=== PATIENT | female | born 1930 | race American Indian/Alaskan Native ===

== ENCOUNTER 2017-02-24 15:23 | Outpatient (CLI) | payer MEDICARE | END 2017-02-24 15:24 | disposition home or self-care (01) | LOC: LABHHL 15:23 | PROVIDERS: ATTEND Surgery | DX: N63 Unspecified lump in breast (principal) | CPT/HCPCS: 88305; 88361 ==

== ENCOUNTER 2017-02-28 14:40 | Outpatient (CLI) | payer MEDICARE | END 2017-02-28 14:41 | disposition home or self-care (01) | LOC: LABHHL 14:40 | PROVIDERS: ATTEND Surgery | DX: D48.7 Neoplasm of uncertain behavior of other specified sites (principal) | CPT/HCPCS: 88305 ==

== ENCOUNTER 2017-04-16 09:20 | Inpatient (IN) | payer MEDICARE ==
--- NOTE | 2017-04-03 15:27 | Admit Criteria Form ---
Admission Criteria Documentation: AMBULATORY SURGERY EXCEPTION CRITERIA Ambulatory Surgery Exception Criteria ( Place 'X' for any and all applicable criteria): Surgery or procedure performed on ambulatory basis may require inpatient stay for[A] ANY ONE of the following(1)(2)(3)(4)(5)(6)(7)(8)(9): [X] I. A preoperative situation, condition, or finding that warrants inpatient stay as indicated by ANY ONE of the following: [] a) Inpatient care needed because of severity of a disease or condition rather than the surgery (eg, severe cardiac or respiratory disease, severe infection) (15) (16 ) (17) (18) [] b) Emergent procedure (eg, angioplasty for acute ischemia)(19) [] c) Complex surgical approach or situation as indicated by ANY ONE of the following(3): [] i) Open approach needed instead of usual endoscopic, transcatheter, or other less invasive procedure [] ii) Difficult approach because of previous operation [] iii) Airway monitoring required after open neck procedures(20)(21) [] iv) Large mass requiring unusually extensive dissection [] v) Additional complicating feature requiring inpatient care (eg, drain management)(22(23): [X] d) Major surgery in a pt with high anesthetic risk as indicated by ANY ONE of the following (2)(3)(5)(7)(8): [X] i) ASA risk class III or higher (severe systemic disease impairing function) [D] [] ii) Advanced age (eg, older than 85 years)(14)(24) [] iii) Symptomatic heart failure(25) [] iv) Symptomatic asthma or COPD(8)(21) [] v) Morbid obesity with hemodynamic or respiratory problems(20)( 21)(26)(27) [] vi) Obstructive sleep apnea(20)(21) [] vii) Former premature infants who are younger than 60 weeks [] viii) High risk for severe postoperative abnormalities (eg, severe postoperative hypocalcemia after parathyroidectomy for severe hyperparathyroidism)(27)( 28) [] ix) Unstable angina(25) [] e) Drug-related risk requiring inpatient stay as indicated by ANY ONE of the following(5)(10)(14)(32)(33) [] i) Procedure requires discontinuing drugs or other therapy (eg , antiarrhythmic medication, antiseizure medication), which necessitates inpatient observation or treatment.(18)(31) [] ii) Major surgery and high risk drug use as indicated by ANY ONE of the following: [] 1) Active abuse of cocaine or similar drug [] 2) Monoamine oxidase inhibitor use [] 3) Other drug identified as posing risk [] f) Inadequate outpatient care situation as indicated by ANY ONE of the following(5)(10)(14)(32)(33) [] i) Patient lives remote from medical facility and procedure has urgent complication potential, and temporary nearby residence cannot be arranged [] ii) Patient will have postprocedure incapacitation and inadequate assistance at home, or alternative level of care cannot be arranged. [] iii) Patient will have long general anesthesia or procedure side effect resolution time, and competent person to stay with patient on first postoperative night at home or alternative level of care cannot be arranged. []iv) Other inadequate outpatient situation that cannot be handled by other means [] II. A perioperative event, condition, or finding that warrants inpatient stay as indicated by ANY ONE of the following (1)(2)(3): [] a) Inadequate physiologic recovery: cardiovascular, respiratory, or hemodynamic status not normal or near preoperative baseline(18) [] b) Hemodynamic instability [] c) Patient not alert with near normal or baseline mental status [] d) Temperature not normal or as expected and not appropriate for outpatient treatment of condition [] e) Ambulatory or appropriate activity level status not yet achieved post procedure [E](34)(35)(36) [] f) Operative site not appropriate (eg, unexpected or excessive drainage or bleeding) [] g) Postoperative effects not resolved or adequately managed (eg, significant pain or vomiting not appropriate for outpatient or next level of care)(10)(12) [] h) Complicating features requiring inpatient care as indicated by ANY ONE of the following(37): [] i) Severe complications of procedure (eg, bowel injury, airway compromise, vascular injury,severe hemorrhage) [] ii) Extensive (eg, dissection far beyond usual scope of procedure ) or prolonged (eg, 120 minutes beyond usual) surgery needed requiring inpatient postoperative care [] iii) Conversion to an open or complex procedure that requires inpatient care (eg, open vs laparoscopic cholecystectomy, abdominal vs vaginal hysterectomy)(38) [] iv) Comorbid condition or test result identified during or post procedure that requires inpatient care (7) [] v) Malignant hyperthermia(30) [] vi) Other complicating feature requiring inpatient care(22)(23) Inpatient stay may be needed until ALL of the following are present (1)(2)(3)(4) (5)(6)(10)(14)(33)(40): []a) Physiologic recovery: cardiovascular, respiratory, and hemodynamic status normal or near preoperative baseline []b) Hemodynamic stability []c) Patient alert, with near normal or baseline mental status []d) Temperature appropriate: patient afebrile or temperature appropriate for outpt treatment of condition []e) Activity level appropriate: ambulatory or appropriate activity level post procedure []f) Operative site appropriate as indicated by ALL of the following: []i) Site dry or with expected drainage []ii) Any blood noted is as expected for procedure. []g) Postoperative effects resolved or managed as indicated by ALL of the following: []i) Pain management appropriate for outpatient (or next level of) care(10) []ii) Minimal nausea and vomiting: if present, successfully treated with oral medication(12) []iii) Headache, dizziness, or drowsiness (if present) are mild. []h) Voiding status acceptable as indicated by ANY ONE of the following: []i) Voiding spontaneously []ii) No voiding but instructions given for follow-up in 6 to 8 hours []iii) Urinary catheter in place, and instructions given for follow-up []i) Complicating features requiring inpatient care manageable at a lower level of care(37) []j) Comorbid conditions manageable at a lower level of care(37) The original [email or web address] content created by [email or web address] has been revised. The portions of the content which have been revised are identified through the use of italic text or in bold, and [facility] [employer] has neither reviewed nor approved the modified material. All other unmodified content is copyright [email or web address]. Please see references footnoted in the original [email or web address] edition 2016 Admission Criteria Met: Yes
[~2017-04-16 09:20] MED LIST: DILAUDID ONE; DIPRIVAN 10 MG/ML IV ONE
[2017-04-16] MEDS ORDERED: NEURONTIN ONE (09:48)
[2017-04-16] MEDS ORDERED: MARCAINE-EPI/PF 0.5%-1:200,000 INFILTRATI ONE (09:48)
[2017-04-16] MEDS ORDERED: DECADRON ONE ×2 (09:48→10:55)
[2017-04-16] MEDS ORDERED: LACTATED RINGERS 1,000 ML ONE ×2 (09:49→12:40)
[2017-04-16] MEDS ORDERED: PEPCID ONE (09:49)
[2017-04-16] MEDS ORDERED: VERSED ONE (09:49)
[2017-04-16] MEDS ORDERED: LACTATED RINGERS 1,000 ML IV SCH (10:00)
[2017-04-16] MEDS ORDERED: PEPCID PO NR (10:00)
[2017-04-16] MEDS ORDERED: VERSED IV SCH (10:00)
[2017-04-16] MEDS ORDERED: NEURONTIN PO NR (10:00)
--- NOTE | 2017-04-16 10:02 | Anesthesia Day of Surgery ---
Anesthesia Day of Surgery - Day of Surgery Patient Examined: Yes Patient H&P Reviewed: Yes Patient is NPO: Yes Beta Blockers: Yes Cardiac Clearance: Yes
--- NOTE | 2017-04-16 10:06 | Anesthesia Consultation ---
Anesthesia Consult and Med Hx - Airway Anesthetic Teeth Evaluation: Dentures (upper and lower) ROM Head & Neck: Adequate Mental/Hyoid Distance: Adequate Mallampati Class: Class II Intubation Access Assessment: Probably Good - Pulmonary Exam CTA: Yes - Cardiac Exam Cardiac Exam: No Murmur (irregular, pt in A Fib) - Pre-Operative Health Status ASA Pre-Surgery Classification: ASA3 Proposed Anesthetic Plan: General Nerve Block: PEC 2 Block - Pulmonary Hx Asthma: Yes (as child) - Cardiovascular System Hx Hypertension: Yes Hx Cardia Arrhythmia: Yes (A FIB) - Central Nervous System Hx Neuromuscular Disorder: Yes (arthritis) - Other Systems Hx Cancer: Yes (R breast ) - Additional Comments Anesthesia Medical History Comments: NPO after MN. Pt took her Beta Rufino this AM. Hx of A fib for many years. Last dose of coumadin 04/10/17. Cardiac clearance on chart. EF 55%. No prior anesthesia complications. Consented for PEC 2 block
[2017-04-16] MEDS ORDERED: XYLOCAINE MPF 2% ONE (10:12)
[2017-04-16] MEDS ORDERED: VANCOMYCIN/NS 1 GM/250 ML 1 GM/250 ML BAG IV ONE (10:22)
[2017-04-16] MEDS ORDERED: VANCOMYCIN/NS 1 GM/250 ML 1 GM/250 ML BAG IV NR (10:30)
[2017-04-16] MEDS ORDERED: ZOFRAN ONE (10:55)
[2017-04-16] MEDS ORDERED: ZOFRAN IV PRN (11:00)
[2017-04-16] MEDS ORDERED: BENADRYL PO PRN (11:00)
[2017-04-16] MEDS ORDERED: REGLAN PO PRN (11:00)
[2017-04-16] MEDS ORDERED: MORPHINE IV PRN (11:00)
[2017-04-16] MEDS ORDERED: TYLENOL PO PRN (11:00)
[2017-04-16] MEDS ORDERED: WATER FOR IRRIG STERILE IR ONE (11:19)
[2017-04-16] MEDS ORDERED: SODIUM CHLORIDE FLUSH SYRINGE 10 ML IV PRN (12:00)
[2017-04-16] MEDS ORDERED: ePHEDrine SULFATE ONE (12:04)
--- NOTE | 2017-04-16 13:37 | Short Stay Summary ---
Short Stay Documentation Date of service: 04/16/17 - History H&P: obtained from office - Allergies and Medications Current Medications: Allergies adhesive tape Adverse Reaction (Verified 04/04/17 13:24) Rash latex Adverse Reaction (Verified 04/04/17 13:24) Rash Penicillins Adverse Reaction (Verified 04/04/17 13:22) Rash Home Medications Medication Instructions Recorded Confirmed Last Taken Type Metoprolol Succinate [Metoprolol 100 mg PO DAILY 04/04/17 04/04/17 04/16/17 08: 10 History Succinate] Olmesartan/Hydrochlorothiazide 20 mg PO DAILY 04/04/17 04/04/17 04/16/17 08:10 History [Benicar HCT 20-12.5 mg] Vitamin B Complex 1 tab PO DAILY 04/04/17 04/16/17 04/15/17 History Warfarin Sodium [Warfarin Sodium] 5 mg PO DAILY 04/04/17 04/16/17 04/10/17 History HYDROcodone/APAP 5-325 [[place] 1 each PO Q6HR PRN #30 tablet 04/16/17 Unknown Rx 5/325] Active Medications Acetaminophen (Tylenol) 650 mg PO Q6H PRN PRN Reason: Pain MILD(1-3)/Fever >100.5/CARMONA Diphenhydramine HCl (Benadryl) 25 mg PO Q8H PRN PRN Reason: Itching Lactated Ringer's (Lactated Ringers) 1,000 mls @ 100 mls/hr IV DIRECT SURYA Lactated Ringer's (Lactated Ringers) 1,000 mls @ 125 mls/hr IV DIRECT SURYA Metoclopramide HCl (Reglan) 10 mg PO Q6H PRN PRN Reason: Nausea And Vomiting Midazolam HCl (Versed) 2 mg IV PREOP SURYA Last Admin: 04/16/17 10:11 Dose: 2 mg Morphine Sulfate (Morphine) 2 mg IV Q4H PRN PRN Reason: Pain, Moderate (4-6) Ondansetron HCl (Zofran) 4 mg IV Q8H PRN PRN Reason: N/V unrelieved by Reglan Oxycodone/Acetaminophen (Percocet 5/325) 1 tab PO Q6H PRN PRN Reason: Pain, Moderate (4-6) Sodium Chloride (Sodium Chloride Flush Syringe 10 Ml) 10 ml IV PRN PRN PRN Reason: LINE FLUSH - Brief post op/procedure progress note Date of procedure: 04/16/17 Pre-op diagnosis: Right breast cancer of the lower outer quadrant Post-op diagnosis: same Procedure: Right modified radical mastectomy Anesthesia: GETA Findings: Right modified radical mastectomy Surgeon: PRETTY ELLIOTT Estimated blood loss: minimal Pathology: list (R MRM) Specimen disposition: to lab Condition: stable - Disposition Condition at discharge: Good Disposition: DC-01 TO HOME OR SELFCARE Short Stay Discharge Plan Activity: other (no heavy lifting) Diet: regular Wound: other (keep incisions clean and dry; may shower in 24 hours; do not rub or scrub incision; no baths, pools or lakes) Follow up with: JOSE MACE MD [Primary Care Provider] - 7 Days PRETTY ELLIOTT MD [Staff Physician] - 7 Days Prescriptions: HYDROcodone/APAP 5-325 [[place] 5/325] 1 each PO Q6HR PRN #30 tablet PRN Reason: Pain
--- NOTE | 2017-04-16 13:51 | Operative Report ---
Operative Report Operative Report: Date of procedure: 04/16/2017 Pre-operative diagnosis: Right breast cancer of the lower outer quadrant Post-operative diagnosis: Same Procedure name(s): Right modified radical mastectomy Surgeon: Rachelle Naylor M.D. Fish Conservationist: Cooper Vargas Anesthesia: Gen. 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 Recommendations were to proceed with a right modified radical mastectomy given prior history of breast conservation followed by adjuvant radiation therapy and recent PET concerning for axillary metastasis. Patient wished to proceed with the above procedure. She did not want proceed with plastic reconstructive surgery. Procedure in detail: Anesthesia placed a right pectoral muscle block prior to proceeding to the operating room. The patient was taken to the operating room and was laid supine. Gen. anesthesia was administered. Right breast and axilla were prepped and draped in the normal sterile operative fashion. Timeout was performed. Right breast cancer at the 8 o'clock position was identified. Typical right mastectomy breasts markings were made. A skin incision was made with a 10 blade knife with dissection taken down to the subcutaneous tissues. First began with raising of the superior flap to the level of the clavicle and posterior to the pectoralis muscle followed by raising of the medial flap to the level of the sternum taken down posteriorly to the pectoralis muscle, followed raising of the inferior flap to the level of inframammary fold and taken down posterior to the pectoralis muscle and follow raising of the lateral flap to the level latissimus dorsi muscle and taken posteriorly. The breast was then removed from the pectoralis muscle without incident. The specimen was appropriately marked and sent to pathology. Attention was then taken towards the right axillary lymph node dissection. First began with identification of the axillary vein. Once the axillary vein was appropriately identified thoracodorsal bundle as well as long thoracic nerve were both identified. Axillary lymph node contents were dissected free from the above boundaries. Bulky axillary disease was noted. The lymph nodes were appropriately sent to pathology. Thoracodorsal bundle and long thoracic nerve were identified and were unharmed. Hemostasis was noted. Two 19 [place] drains were placed. Breast cavity and axilla were irrigated and suctioned. The subcutaneous tissues of the mastectomy flap were closed and brought together with interrupted 3-0 Vicryl and the skin was closed using a running 4- 0 Monocryl and skin affix. She tolerated surgery very well and was awakened from anesthesia without any complications and transported to PACU in good condition.
--- NOTE | 2017-04-16 14:24 | Post Anesthesia Evaluation ---
- Post Anesthesia Evaluation Patient Participated: Yes Airway Patent: Yes Stable Respiratory Function: Yes Nausea/Vomiting: No Temp > 96.8F: Yes Pain Manageable: Yes Adequeate Hydration: Yes Anesthesia Complications: No
[2017-04-16] MEDS: PERCOCET 5/325 PO PRN (17:25)
[2017-04-16] MEDS: LACTATED RINGERS 1,000 ML IV SCH (17:33)
[2017-04-17] MEDS: LACTATED RINGERS 1,000 ML IV SCH (00:41)
--- NOTE | 2017-04-17 07:38 | Progress Note ---
Assessment and Plan This is a 86 year old lady POD#1 R MRM for stage II right breast cancer. No acute events overnight. Pain well controlled. 1. Patient doing well. 2. Right chest incision healing well. 3. DELMIS drain education. 4. OOB to hallway. 5. D/C planning for this morning. 6. F/U with Dr. Naylor tomorrow morning. 7. Hold coumadin for now. Subjective Date of service: 04/17/17 Principal diagnosis: Right breast cancer of the lower oute quadrant Interval history: This is a 86 year old lady POD#1 R MRM for stage II right breast cancer. No acute events overnight. Pain well controlled. Objective - Constitutional Vitals: Vital Signs - 12hr 04/16/17 20:10 Temperature 96.8 F L Pulse Rate [ 52 L Apical] Respiratory 20 Rate Blood Pressure 137/71 [Left Arm] General appearance: Present: no acute distress - EENT Eyes: PERRL, EOM intact ENT: hearing intact, clear oral mucosa Ears: bilateral: normal - Neck Neck: supple, normal ROM - Respiratory Respiratory effort: normal Respiratory: bilateral: CTA - Breasts Breasts: other (right mastectomy incision c/d/i, skin well perfused, typical postoperative bruising, no fluid collection; DELMIS drains to bulb suction) - Cardiovascular Rhythm: regular Extremities: no ischemia, pulses intact, pulses symmetrical, No edema, normal temperature, normal color, Full ROM - Gastrointestinal General gastrointestinal: Present: soft, non-tender, non-distended Rectal Exam: deferred - Genitourinary Female genitourinary: deferred - Integumentary Integumentary: clear, warm, dry - Musculoskeletal Musculoskeletal: strength equal bilaterally - Neurologic Neurologic: CNII-XII intact, moves all extremities - Psychiatric Psychiatric: appropriate mood/affect, intact judgment & insight, memory intact, cooperative
[2017-04-17] MEDS: PERCOCET 5/325 PO PRN (08:08)
[2017-04-17] MEDS ORDERED: LOPRESSOR PO SCH (11:00)
[2017-04-17] MEDS ORDERED: COZAAR PO SCH (11:00)
[2017-04-17] MEDS ORDERED: HCTZ PO SCH (11:00)
--- NOTE | 2017-04-17 15:42 | Progress Note ---
Subjective Date of service: 04/17/17 Principal diagnosis: Right breast cancer of the lower oute quadrant Interval history: 1st POD after right mastectomy Patient is in the bed, relatively comfortable. Pain is well controlled with pain meds. Ambulated well. No nausea or vomiting. No anesthesia complications Objective - Constitutional Vitals: Vital Signs - 12hr 04/17/17 04/17/17 04/17/17 05:45 07:30 11:54 Temperature 97.6 F 97.7 F Pulse Rate 59 L Pulse Rate [ 52 L 52 L Apical] Respiratory 18 18 Rate Blood Pressure 157/71 Blood Pressure 148/72 158/63 [Left Arm] 04/17/17 11:55 Temperature Pulse Rate 59 L Pulse Rate [ Apical] Respiratory Rate Blood Pressure 157/71 Blood Pressure [Left Arm]
[2017-04-17 16:18] VITALS: BP 116/60
== END 2017-04-17 18:05 | disposition home or self-care (01) | DRG 583 ==
LOC: 3A 09:20 → EDSTATUS 14:45 → OB 15:45
PROVIDERS: ADMIT Surgery; ATTEND Surgery
PROC: 07T50ZZ Resection of Right Axillary Lymphatic, Open Approach (ICD-10-PCS; principal; 2017-04-16)
PROC: 0HTT0ZZ Resection of Right Breast, Open Approach (ICD-10-PCS; principal; 2017-04-16)
DX: C50.511 Malignant neoplasm of lower-outer quadrant of right female breast (principal)
CPT/HCPCS: 88305; 88307; 88309; J1100; J1170; J2250; J2405; J2704; J3370; J7120

== ENCOUNTER 2021-05-10 12:49 | Outpatient (CLI) | payer MEDICARE, BC ==
--- NOTE | 2021-05-10 16:46 | Mammography Report ---
DIGITAL SCREENING MAMMOGRAM WITH CAD, 05/10/2021 CLINICAL INFORMATION / INDICATION: Routine screening mammography. TECHNIQUE: Digital bilateral 2D mammography was obtained in the craniocaudal and mediolateral obliqu e projections. This examination was interpreted with the benefit of Computer-Aided Detection analysis . COMPARISON: 04/13/2020, 04/29/2019 FINDINGS: Breast Density: There are scattered areas of fibroglandular density. No dominant mass, suspicious calcifications, or architectural distortion in the left breast. Vascular calcifications and a few benign scattered calcifications are again noted. Overall, no interv al change. IMPRESSION: No mammographic evidence of malignancy. Follow up recommendation: Routine yearly BI-RADS Category 2: Benign. A "normal" or negative report should not discourage follow up or biopsy of a clinically significant f inding. A written summary of these findings will be mailed to the patient. The patient will be entered into a mammography reporting system which will generate a reminder letter for the patient's next appointmen t at the appropriate interval. The [employer] recommends yearly mammograms starting at age 40 and continuing as l katharine as a woman is in good health. Breast MRI is recommended for women with an approximate 20-25% or greater lifetime risk of breast cancer, including women with a strong family history of breast or ova meir cancer or who have been treated for Hodgkin's disease. Signer Name: Ara Rowe MD Signed: 05/10/2021 4:42 PM Workstation Name: [id number]
== END 2021-05-10 12:50 | disposition home or self-care (01) ==
LOC: SPVWC 12:49
PROVIDERS: ATTEND Surgery
DX: Z12.31 Encounter for screening mammogram for malignant neoplasm of breast (principal)